=== PATIENT | male | born 1995 | race Caucasian/White ===

== ENCOUNTER 2018-12-25 02:42 | Emergency (ER) | payer OTHER ==
[~2018-12-25] VITALS: Ht 162.6 cm; Wt 65.8 kg
[2018-12-25 02:45] VITALS: Ht 162.6 cm; Wt 65.8 kg
[2018-12-25 03:44] VITALS: BP 109/64
== END 2018-12-25 03:44 | disposition other institution (70) ==
LOC: ED 02:42
DX: Z02.89 Encounter for other administrative examinations (principal)